=== PATIENT | female | born 1955 | race Caucasian/White ===

== ENCOUNTER 2022-11-07 05:09 | Day surgery (SDC) | payer OTHER, BC ==
[2022-11-03 15:40] VITALS: BMI 34.4
[2022-11-07 09:16] VITALS: TEMP 98
[2022-11-07 09:51] VITALS: BP 134/58; PULSE 68; RESP 16
== END 2022-11-07 10:10 | disposition home or self-care (01) ==
LOC: JASU-ENDO 05:09
PROVIDERS: ATTEND Internal Medicine Gastroenterology
PROC: 0DBL8ZX Excision of Transverse Colon, Via Natural or Artificial Opening Endoscopic, Diagnostic (ICD-10-PCS; principal; 2022-11-07 09:00)
DX: Z12.11 Encounter for screening for malignant neoplasm of colon (principal); D12.3 Benign neoplasm of transverse colon; K57.30 Diverticulosis of large intestine without perforation or abscess without bleeding; Z83.71 Family history of colonic polyps
CPT/HCPCS: 88305-TC